=== PATIENT | female | born 1990 ===

== ENCOUNTER → 2017-01-02 | Emergency (ER) | payer SELFPAY ==
[~2017-01-02] VITALS: Wt 48.1 kg
[~2017-01-02] MED LIST: AMO500 PO; FLUT9.9S NASAL; IBUP-1542 PO
[2017-01-02 15:07] VITALS: BP 119/72; PULSE 78; RESP 16
--- NOTE | 2017-01-02 18:53 | ERD ---
ER Documentation Chief Complaint Date/Time DATE: 01/02/17 TIME: 18:51 Chief Complaint headache with intermittent nosebleed for the past few days. HPI Patient is a 26-year-old female with no medical problems who presents with nosebleeds. She says that for the past 2 weeks she was not feeling well and yesterday she lost her voice. She has had nosebleeds off and on. She said that she tried to amoxicillin pills that her mother gave her and that "it helped me". She has no appointment with her primary doctor available. She had no fevers. She does have a headache. She was concerned about the nosebleeds. ROS All systems reviewed and are negative except as per history of present illness. Medications Home Meds Active Scripts Ibuprofen* (Motrin*) 600 Mg Tab, 600 MG PO Q6H Y for PAIN AND OR ELEVATED TEMP, #30 TAB Prov:LASHA DOWLING MD 01/02/17 Fluticasone Propionate (Flonase Allergy Relief) 9.9 Ml [place].susp, 2 SPRAY NASAL DAILY, #1 BOTTLE TO EACH NOSTRIL Prov:LASHA DOWLING MD 01/02/17 Amoxicillin* (Amoxicillin*) 500 Mg Cap, 500 MG PO TID for 7 Days, CAP Prov:LASHA DOWLING MD 01/02/17 PMhx/Soc Medical and Surgical Hx: pt denies Medical Hx, pt denies Surgical Hx Hx Alcohol Use: No Hx Substance Use: No Hx Tobacco Use: No Smoking Status: Never smoker FmHx Family History: diabetes Physical Exam Vitals Vital Signs Date Time Temp Pulse Resp B/P Pulse Ox O2 Delivery O2 Flow Rate FiO2 01/02/17 15:07 78 16 119/72 99 Room Air 01/02/17 14:01 98.5 84 20 119/73 98 Physical Exam Const: No acute distress Head: Atraumatic Eyes: Normal Conjunctiva ENT: Normal External Ears, Nose and Mouth. Friable mucosa and a small area to the left nares in the anterior portion without bleeding at this time Neck: Full range of motion..~ No meningismus. Resp: Clear to auscultation bilaterally Cardio: Regular rate and rhythm, no murmurs Abd: Soft, non tender, non distended. Normal bowel sounds Skin: No petechiae or rashes Back: No midline or flank tenderness Ext: No cyanosis, or edema Neur: Awake and alert Psych: Normal Mood and Affect Procedures/MDM Patient is a 26-year-old female presents with symptoms of nosebleeds and the fact that she lost her voice. It is possible that she has a sinusitis at this time but otherwise the patient is well-appearing. I will treat with amoxicillin , Flonase, and ibuprofen. The patient to follow-up closely with her primary doctor within 24-48 hours for reevaluation. She can return sooner for any worsening symptoms. At this point I believe outpatient management is appropriate. I do not believe the patient requires further workup at this time. Departure Diagnosis: Primary Impression: Sinusitis Sinusitis location: unspecified location Chronicity: acute Recurrence: non -recurrent Qualified Code: J01.90 - Acute non-recurrent sinusitis, unspecified location Additional Impression: Headache Headache type: unspecified Headache chronicity pattern: acute headache Intractability: not intractable Qualified Code: R51 - Acute nonintractable headache, unspecified headache type Condition: Fair Patient Instructions: Self-Care for Headaches, Sinusitis, Abx Tx Referrals: [facility] Additional Instructions: Call your primary care doctor TOMORROW for an appointment during the next 1 WEEK.Tell the electrician helper that you were referred from this facility.See the doctor sooner or return here if your condition worsens before your appointment time. LASHA DOWLING MD Jan 02, 2017 18:53
== END | disposition home or self-care (01) ==
LOC: FTE 13:58
DX: J01.90 Acute sinusitis, unspecified (principal); R51 Headache
CPT/HCPCS: 99283